=== PATIENT | male | born 1990 | race Caucasian/White ===

== ENCOUNTER 2018-08-18 14:15 | Emergency (ER) | payer SELFPAY ==
[~2018-08-18] VITALS: Ht 182.9 cm; Wt 71.8 kg
[2018-08-18 14:20] VITALS: Ht 182.9 cm; Wt 71.8 kg
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
[2018-08-18] MEDS ORDERED: TRAM50TA2 PO (19:28)
[2018-08-18] MEDS ORDERED: IBUP800T48 PO (19:28)
[2018-08-18] MEDS ORDERED: KETOROLAC 60 MG INJ IM STA (19:33)
[2018-08-18 19:51] VITALS: BP 124/74; PULSE 74; RESP 17
[2018-08-18] MEDS ORDERED: HYDROCODONE/APAP (5/325) TAB PO ONE (20:00)
== END 2018-08-18 19:51 | disposition home or self-care (01) ==
LOC: FTE 14:15
DX: S22.31XA Fracture of one rib, right side, initial encounter for closed fracture (principal); H53.8 Other visual disturbances; S09.90XA Unspecified injury of head, initial encounter; R51 Headache; V29.9XXA Motorcycle rider (driver) (passenger) injured in unspecified traffic accident, initial encounter
CPT/HCPCS: 70450; 71100; 96372; 99285; J1885